=== PATIENT | male | born 1975 | race Caucasian/White ===

== ENCOUNTER 2018-01-05 19:02 | Emergency (ER) | payer BC ==
[2018-01-05] MEDS ORDERED: Bacitracin/Neomycin/Polymyxin B Oint 0.9 GM U/D Packet TOP ONE ×2 (19:07→19:24)
[2018-01-05] MEDS ORDERED: Bacitracin/Neomycin/Polymyxin B Oint 0.9 GM U/D Packet ONE (19:07)
[2018-01-05] MEDS ORDERED: Diphtheria,Pertussis(Acell),Tetanus Vaccine 0.5 ML Syringe IM ONE (19:14)
--- NOTE | 2018-01-05 19:18 | EDM.PDOC ---
ED HPI GENERAL MEDICAL PROBLEM - General Chief Complaint: Laceration Stated Complaint: laceration to right arm Time Seen by Provider: 01/05/18 19:04 Source of Information: Reports: Patient History Limitations: Reports: No Limitations - History of Present Illness Onset: Today, Sudden Location: Reports: Upper Extremity, Right Quality: Reports: Sharp - Related Data Allergies Allergy/AdvReac Type Severity Reaction Status Date / Time No Known Allergies Allergy Verified 01/05/18 19:15 Home Meds: Home Meds Esomeprazole Magnesium [Nexium] 40 mg PO DAILY 07/20/14 [History] Fenofibrate 1 tab PO DAILY 07/20/14 [History] Lisinopril/Hydrochlorothiazide [Lisinopril-Hctz 10-12.5 mg Tab] 1 tab PO DAILY 07/20/14 [History] Potassium Bicarbonate/Cit Ac [Potassium 25 Meq Tablet Eff] 1 tab PO DAILY [History] Sertraline HCl 50 mg PO DAILY 07/20/14 [History] Simvastatin 40 mg PO BEDTIME 07/20/14 [History] Valsartan 160 mg PO DAILY 07/20/14 [History] glipiZIDE [Glipizide ER] 10 mg PO DAILY 07/20/14 [History] metFORMIN [Glucophage] 500 mg PO BID 07/20/14 [History] Past Medical History Cardiovascular History: Reports: High Cholesterol, Hypertension Respiratory History: Reports: Asthma Gastrointestinal History: Reports: GERD Psychiatric History: Reports: Anxiety, Depression Endocrine/Metabolic History: Reports: Diabetes, Type I - Past Surgical History Musculoskeletal Surgical History: Reports: Other (See Below) Social & Family History - Family History Family Medical History: Noncontributory - Caffeine Use Caffeine Use: Reports: Coffee ED ROS GENERAL - Review of Systems Review Of Systems: See Below Skin: Reports: Other (reports laceration to RIGHT arm, dorsal surface. denies other skin concerns) ED EXAM, SKIN/RASH Exam: See Below Exam Limited By: No Limitations General Appearance: Alert, WD/WN, No Apparent Distress Respiratory/Chest: No Respiratory Distress Cardiovascular: Normal Peripheral Pulses Peripheral Pulses: 2+: Radial (L), Radial (R) Extremities: Other (superficial laceration to the dorsal surface of the RIGHT arm. approx 5 cm in length. extremities otherwise without any acute findings.) Skin: Other (laceration to RIGHT arm. see MSK for further. skin is otherwise AWD and without findings.) ED SKIN PROCEDURES - Laceration/Wound Repair Right Middle Dorsal Arm Lac/Wound length In cm: 5 Appearance: Superficial Distal NVT: Neuro & Vascular Intact, No Tendon Injury Anesthetic Type: Local Local Anesthesia - Lidocaine (Xylocaine): Other (none required) Skin Prep: Chlorhexidine (Hibiciens), Providone-Iodine (Betadine) Exploration/Debridement/Repair: Wound Explored Closed with: Dermabond, Steri-Strips Course - Orders/Labs/Meds Orders: Active Orders 24 hr Category Date Time Status Vaccines to be Administered [RC] PER UNIT ROUTINE Care 01/05/18 19:15 Active Meds: Medications Discontinued Medications Generic Name Dose Route Start Last Admin Trade Name Freq PRN Reason Stop Dose Admin Diphtheria/Tetanus/Acell Pertussis 0.5 ml 01/05/18 19:14 01/05/18 19:28 Adacel IM 01/05/18 19:15 0.5 ml .ONCE ONE Administration Neomycin/Polymyxin/Bacitracin Confirm 01/05/18 19:07 01/05/18 19:30 Triple Antibiotic Oint Administered 01/05/18 19:08 Not Given Dose 1 each .ROUTE .STK-MED ONE Neomycin/Polymyxin/Bacitracin 1 each 01/05/18 19:24 01/05/18 19:30 Triple Antibiotic Oint TOP 01/05/18 19:25 1 each ONETIME ONE Administration Neomycin/Polymyxin/Bacitracin 1 each 01/05/18 19:07 01/05/18 19:10 Triple Antibiotic Oint TOP 01/05/18 19:08 1 each ONETIME ONE Administration Departure - Departure Time of Disposition: 19:17 Disposition: DC/Tfer to Hospice - Home 50 Clinical Impression: Laceration - Discharge Information *PRESCRIPTION DRUG MONITORING PROGRAM REVIEWED*: Not Applicable *COPY OF PRESCRIPTION DRUG MONITORING REPORT IN PATIENT NARAYAN: Not Applicable Instructions: Laceration Care, Adult, [id number] Referrals: Roya Phillip PA-C [Primary Care Provider] - Forms: ED Department Discharge - My Orders Last 24 Hours: My Active Orders 01/05/18 19:15 Vaccines to be Administered [RC] PER UNIT ROUTINE - Assessment/Plan Last 24 Hours: My Active Orders 01/05/18 19:15 Vaccines to be Administered [RC] PER UNIT ROUTINE Assessment:: superficial laceration. easily closed with dermabond and steri strips. TdAP updated in ER. patient tolerated procedure well. see note for further information. Advised patient to rest, hydrate, OTC pain control prn symptoms, standard wound care precautions, fu with PCP in 5-7 days, go to ER if change or worse. Patient reports understanding and agreement with plan. DC home stable.
[2018-01-05 20:39] VITALS: BP 148/85
== END 2018-01-05 19:48 | disposition home or self-care (01) ==
LOC: CC.ED 19:02
DX: S41.111A Laceration without foreign body of right upper arm, initial encounter (principal); I10 Essential (primary) hypertension; E10.9 Type 1 diabetes mellitus without complications; Z23 Encounter for immunization; Z79.899 Other long term (current) drug therapy; X58.XXXA Exposure to other specified factors, initial encounter
CPT/HCPCS: 12002; 90471; 90715; 99282

== ENCOUNTER 2018-11-23 21:18 | Emergency (ER) | payer BC ==
[2018-11-23] MEDS ORDERED: Clindamycin HCl 150 MG Cap PO ONE (21:19)
[2018-11-23 21:28] VITALS: BP 145/93; PULSE 81
--- NOTE | 2018-11-23 21:32 | EDM.PDOC ---
ED HPI GENERAL MEDICAL PROBLEM - General Chief Complaint: ENT Problem Stated Complaint: right earache Time Seen by Provider: 11/23/18 21:20 Source of Information: Reports: Patient History Limitations: Reports: No Limitations - History of Present Illness INITIAL COMMENTS - FREE TEXT/NARRATIVE: in with c/o right ear pain, has had sx off and on since jun, has seen the ENT, last time was last week, will need to do additional testing, does have a hx of chronic hearing loss, no new changes, no fever, no neck/back pain or stiffness, no nose or throat sx, no fever, no chills, no drainage from ear Onset: Today Location: Reports: Other (right ear) Quality: Reports: Ache Severity: Moderate Improves with: Reports: None Worsens with: Reports: None Associated Symptoms: Denies: Cough, Fever/Chills, Headaches, Nausea/Vomiting, Rash 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) (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) - Related Data Allergies Allergy/AdvReac Type Severity Reaction Status Date / Time No Known Allergies Allergy Verified 11/23/18 21:19 Home Meds: Home Meds Esomeprazole Magnesium [Nexium] 40 mg PO DAILY 07/20/14 [History] Fenofibrate 1 tab PO DAILY 07/20/14 [History] Lisinopril/Hydrochlorothiazide [Lisinopril-Hctz 10-12.5 mg Tab] 1 tab PO DAILY 07/20/14 [History] Potassium Bicarbonate/Cit Ac [Potassium 25 Meq Tablet Eff] 1 tab PO DAILY [History] Sertraline HCl 50 mg PO DAILY 07/20/14 [History] Simvastatin 40 mg PO BEDTIME 07/20/14 [History] Valsartan 160 mg PO DAILY 07/20/14 [History] glipiZIDE [Glipizide ER] 10 mg PO DAILY 07/20/14 [History] metFORMIN [Glucophage] 500 mg PO DAILY 07/20/14 [History] Clindamycin HCl 150 mg PO TID 10 Days #30 capsule 11/23/18 [Rx] Past Medical History Cardiovascular History: Reports: High Cholesterol, Hypertension Respiratory History: Reports: Asthma Gastrointestinal History: Reports: GERD Psychiatric History: Reports: Anxiety, Depression Endocrine/Metabolic History: Reports: Diabetes, Type I - Past Surgical History Musculoskeletal Surgical History: Reports: Other (See Below) Social & Family History - Family History Family Medical History: Noncontributory - Caffeine Use Caffeine Use: Reports: Coffee ED ROS ENT - Review of Systems Review Of Systems: See Below Constitutional: Reports: No Symptoms. Denies: Fever, Chills HEENT: Reports: Ear Pain (right) Respiratory: Reports: No Symptoms. Denies: Shortness of Breath Cardiovascular: Reports: No Symptoms. Denies: Chest Pain GI/Abdominal: Reports: No Symptoms. Denies: Nausea ED EXAM, ENT - Physical Exam Exam: See Below Exam Limited By: No Limitations General Appearance: Alert, WD/WN, No Apparent Distress Ears: Normal Canal, TM Erythema (right), Other (left tm has scaring and the TM appears irregular, pt advised that is normal for him ) Nose: Normal Inspection, Normal Mucousa Mouth/Throat: Normal Inspection, Normal Gums, Normal Lips, Normal Oropharynx Head: Atraumatic, Normocephalic Neck: Normal Inspection, Supple, Non-Tender, Full Range of Motion Respiratory/Chest: No Respiratory Distress, Lungs Clear, Normal Breath Sounds Cardiovascular: Normal Peripheral Pulses, Regular Rate, Rhythm. No: No Murmur Extremities: Normal Inspection Course - Vital Signs Text/Narrative:: the pt was evaluated in the ED, the pt has acute on chronic OM, the pt willbe given clindamycin 150mg tid x 10 days and will f/u with ENT this week, will use warm heat and alternate tylenol and motrin for pain Departure - Departure Time of Disposition: 21:32 Disposition: Home, Self-Care 01 Condition: Good Clinical Impression: Right otitis media - Discharge Information *PRESCRIPTION DRUG MONITORING PROGRAM REVIEWED*: Not Applicable Prescriptions: Clindamycin HCl 150 mg PO TID 10 Days #30 capsule Instructions: Otitis Media, Adult, [id number] Additional Instructions: clindamycin 150mg 3 x a day for 10 days follow up with your ENT doctor this week, call monday for an appointment time return to the ED as needed - Problem List & Annotations (1) Right otitis media SNOMED Code(s): 07400213 Code(s): H66.91 - OTITIS MEDIA, UNSPECIFIED, RIGHT EAR Status: Acute Priority: High Current Visit: Yes Qualifiers: Otitis media type: unspecified Qualified Code(s): H66.91 - Otitis media, unspecified, right ear
[2018-11-23] MEDS ORDERED: traMADol 50 MG Tab PO ONE (21:37)
[2018-11-23] MEDS ORDERED: Take Home: Clindamycin HCl 150 MG Cap, 6 Cap Pack PO ONE (21:37)
== END 2018-11-23 21:48 | disposition home or self-care (01) ==
LOC: CC.ED 21:18
DX: H66.91 Otitis media, unspecified, right ear (principal); E10.9 Type 1 diabetes mellitus without complications; E78.00 Pure hypercholesterolemia, unspecified; I10 Essential (primary) hypertension; Z79.899 Other long term (current) drug therapy
CPT/HCPCS: 99282; A9270

== ENCOUNTER 2020-08-29 15:38 | Emergency (ER) | payer BC ==
[2020-08-29] MEDS ORDERED: Ketorolac 60 MG/2 ML SDV IM ONE (15:59)
[2020-08-29] MEDS ORDERED: Orphenadrine 60 MG/2 ML Inj IM ONE (15:59)
[2020-08-29] MEDS ORDERED: Take Home: Acetaminophen/HYDROcodone 325-5 MG, 2 Tab Pack PO ONE (16:00)
[2020-08-29] MEDS ORDERED: Take Home: Cyclobenzaprine 10 MG Tab, 4 Tab Pack PO ONE (16:01)
[2020-08-29] MEDS ORDERED: Take Home: Ketorolac 10 MG Tab, 4 Tab Pack PO ONE (16:01)
--- NOTE | 2020-08-29 16:12 | EDM.PDOC ---
ED HPI GENERAL MEDICAL PROBLEM - General Chief Complaint: General Stated Complaint: low back pain Time Seen by Provider: 08/29/20 15:55 Source of Information: Reports: Patient History Limitations: Reports: No Limitations - History of Present Illness INITIAL COMMENTS - FREE TEXT/NARRATIVE: eTd is a 44 year old male who presents today with acute low back pain. Starting having pain last Monday. No known injury or triggers. has been seeing the chiropractor all week with only minimal relief after each treatment. Was feeling better this am but the spasms started again and now is having trouble walking. 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(s) (ibuprofen) - Related Data Allergies Allergy/AdvReac Type Severity Reaction Status Date / Time No Known Allergies Allergy Verified 08/29/20 15:38 Home Meds: Home Meds Sertraline HCl 50 mg PO DAILY 07/20/14 [History] Albuterol Sulfate [Proair Hfa] 2 inh INH QID PRN 07/30/20 [History] Cholecalciferol (Vitamin D3) [Vitamin D3] 125 mcg PO DAILY 07/30/20 [History] Ertugliflozin Pidolate [Steglatro] 5 mg PO DAILY 07/30/20 [History] Esomeprazole Magnesium 40 mg PO DAILY 07/30/20 [History] Fenofibrate Nanocrystallized [Fenofibrate] 145 mg PO DAILY 07/30/20 [History] Irbesartan 300 mg PO DAILY 07/30/20 [History] Montelukast [Singulair] 10 mg PO DAILY 07/30/20 [History] Potassium Chloride 20 meq PO DAILY 07/30/20 [History] amLODIPine Besylate [Amlodipine Besylate] 10 mg PO DAILY 07/30/20 [History] atorvaSTATin Calcium [Atorvastatin Calcium] 40 mg PO DAILY 07/30/20 [History] cloNIDine [Catapres] 0.1 mg PO BID 07/30/20 [History] lisinopriL [Lisinopril] 20 mg PO DAILY 07/30/20 [History] sitaGLIPtin Phos/Metformin HCl [Janumet Xr 100-1,000 mg Tablet] 1 tab PO DAILY 07/30/20 [History] Past Medical History Cardiovascular History: Reports: High Cholesterol, Hypertension Respiratory History: Reports: Asthma Gastrointestinal History: Reports: GERD Psychiatric History: Reports: Anxiety, Depression Endocrine/Metabolic History: Reports: Diabetes, Type II - Past Surgical History Musculoskeletal Surgical History: Reports: Other (See Below) Other Musculoskeletal Surgeries/Procedures:: knee and wrist surgery Social & Family History - Family History Family Medical History: No Pertinent Family History - Tobacco Use Tobacco Use Status *Q: Never Tobacco User - Caffeine Use Caffeine Use: Reports: Coffee - Recreational Drug Use Recreational Drug Use: No ED ROS GENERAL - Review of Systems Review Of Systems: See Below Constitutional: Denies: Fever, Chills, Malaise, Weakness, Fatigue HEENT: Reports: No Symptoms Respiratory: Denies: Shortness of Breath Cardiovascular: Denies: Chest Pain Endocrine: Reports: No Symptoms GI/Abdominal: Denies: Abdominal Pain, Nausea, Vomiting Musculoskeletal: Reports: Back Pain, Leg Pain (pain radiates down the leg), Muscle Pain Skin: Reports: No Symptoms ED EXAM, GENERAL - Physical Exam Exam: See Below Exam Limited By: No Limitations General Appearance: Alert, WD/WN, Moderate Distress Head: Normocephalic Neck: Normal Inspection, Supple, Non-Tender Respiratory/Chest: Lungs Clear Cardiovascular: Regular Rate, Rhythm Back Exam: Decreased Range of Motion, Muscle Spasm (very tight, swollen to right lower lumbar paraspinal musculature. Minimal flexion or extension, difficulty raising up from the chair.), Paraspinal Tenderness Neurological: Alert, Oriented Skin Exam: Warm, Dry Course - Orders/Labs/Meds Meds: Medications Discontinued Medications Generic Name Dose Route Start Last Admin Trade Name Freq PRN Reason Stop Dose Admin Hydrocodone Bitart/Acetaminophen 3 packet 08/29/20 16:00 08/29/20 16:14 Take Home: Acetaminophen/Hydrocodone 325-5 Mg, 2 Tab Pack PO 08/29/20 16:01 3 packet ONETIME ONE Administration Cyclobenzaprine HCl 2 packet 08/29/20 16:01 08/29/20 16:14 Take Home: Cyclobenzaprine 10 Mg Tab, 4 Tab Pack PO 08/29/20 16:02 2 packet ONETIME ONE Administration Ketorolac Tromethamine 60 mg 08/29/20 15:59 08/29/20 16:04 Ketorolac 60 Mg/2 Ml Sdv IM 08/29/20 16:00 60 mg ONETIME ONE Administration Ketorolac Tromethamine 2 packet 08/29/20 16:01 08/29/20 16:14 Take Home: Ketorolac 10 Mg Tab, 4 Tab Pack PO 08/29/20 16:02 2 packet ONETIME ONE Administration Orphenadrine Citrate 60 mg 08/29/20 15:59 08/29/20 16:03 Orphenadrine 60 Mg/2 Ml Inj IM 08/29/20 16:00 60 mg ONETIME ONE Administration Departure - Departure Time of Disposition: 16:13 Disposition: Home, Self-Care 01 Condition: Fair Clinical Impression: Low back pain - Discharge Information *PRESCRIPTION DRUG MONITORING PROGRAM REVIEWED*: No *COPY OF PRESCRIPTION DRUG MONITORING REPORT IN PATIENT NARAYAN: No Instructions: Acute Back Pain, Adult Referrals: Roya Phillip PA-C [Primary Care Provider] - Forms: ED Department Discharge Additional Instructions: 1. Rest 2. Ice or heat 3. Flexeril 10 mg every 8 hours as needed for muscle spasms 4. Toradol 10 every every 6 hours as needed for pain/inflammatin 5. [place] 1 tab every 6 hours for severe pain 6. See Physical therapy for ongoing pain 7. Follow up if persisting pain, may need further imaging Sepsis Event Note (ED) - Evaluation Sepsis Screening Result: No Definite Risk
== END 2020-08-29 16:23 | disposition home or self-care (01) ==
LOC: CC.ED 15:38
DX: M54.5 Low back pain (principal); E78.00 Pure hypercholesterolemia, unspecified; I10 Essential (primary) hypertension; J45.909 Unspecified asthma, uncomplicated; K21.9 Gastro-esophageal reflux disease without esophagitis; E11.9 Type 2 diabetes mellitus without complications; Z79.84 Long term (current) use of oral hypoglycemic drugs; Z79.899 Other long term (current) drug therapy
CPT/HCPCS: 96372; 99283; A9270; J1885; J2360

== ENCOUNTER 2020-09-19 20:19 | Emergency (ER) | payer BC ==
[2020-09-19 20:33] VITALS: BP 170/100; PULSE 84
[2020-09-19] MEDS ORDERED: Take Home: Acetaminophen/HYDROcodone 325-5 MG, 2 Tab Pack PO ONE (20:49)
--- NOTE | 2020-09-19 20:53 | EDM.PDOC ---
ED HPI GENERAL MEDICAL PROBLEM - General Chief Complaint: General Stated Complaint: right ear pain Time Seen by Provider: 09/19/20 20:30 Source of Information: Reports: Patient History Limitations: Reports: No Limitations - History of Present Illness INITIAL COMMENTS - FREE TEXT/NARRATIVE: Ruel is a 44 year old male who presents to ER with complaints of right ear pain. 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 Jacome for this. Tera was seen by Dr. Jacome in [place] and had a polyp present in the drum. Had a powder placed and was started on Ciprodex. Noted that evening, had a pop in the ear, and then drainage. [place] good for a short period of time. Has been draining some since that time. Since 4 pm today, has had more severe pain. No fevers. No swelling or redness around his ear that he is aware. No dizziness. 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 Right Ear Pain Score (Numeric/FACES): 0 - Related Data Allergies Allergy/AdvReac Type Severity Reaction Status Date / Time No Known Allergies Allergy Verified 09/19/20 20:20 Home Meds: Home Meds Sertraline HCl 50 mg PO DAILY 07/20/14 [History] Albuterol Sulfate [Proair Hfa] 2 inh INH QID PRN 07/30/20 [History] Cholecalciferol (Vitamin D3) [Vitamin D3] 125 mcg PO DAILY 07/30/20 [History] Ertugliflozin Pidolate [Steglatro] 5 mg PO DAILY 07/30/20 [History] Esomeprazole Magnesium 40 mg PO DAILY 07/30/20 [History] Fenofibrate Nanocrystallized [Fenofibrate] 145 mg PO DAILY 07/30/20 [History] Irbesartan 300 mg PO DAILY 07/30/20 [History] Montelukast [Singulair] 10 mg PO DAILY 07/30/20 [History] Potassium Chloride 20 meq PO DAILY 07/30/20 [History] amLODIPine Besylate [Amlodipine Besylate] 10 mg PO DAILY 07/30/20 [History] atorvaSTATin Calcium [Atorvastatin Calcium] 40 mg PO DAILY 07/30/20 [History] cloNIDine [Catapres] 0.1 mg PO BID 07/30/20 [History] lisinopriL [Lisinopril] 20 mg PO DAILY 07/30/20 [History] sitaGLIPtin Phos/Metformin HCl [Janumet Xr 100-1,000 mg Tablet] 1 tab PO DAILY 07/30/20 [History] Past Medical History HEENT History: Reports: Hard of Hearing Cardiovascular History: Reports: High Cholesterol, Hypertension Respiratory History: Reports: Asthma Gastrointestinal History: Reports: GERD Psychiatric History: Reports: Anxiety, Depression Endocrine/Metabolic History: Reports: Diabetes, Type II - Past Surgical History Musculoskeletal Surgical History: Reports: Other (See Below) Other Musculoskeletal Surgeries/Procedures:: knee and wrist surgery Social & Family History - Family History Family Medical History: No Pertinent Family History - Tobacco Use Tobacco Use Status *Q: Current Every Day Tobacco User Years of Tobacco use: 30 Packs/Tins Daily: 1 - Caffeine Use Caffeine Use: Reports: Coffee ED ROS GENERAL - Review of Systems Review Of Systems: See Below Constitutional: Denies: Fever, Chills, Malaise, Weakness, Fatigue HEENT: Reports: Ear Discharge, Ear Pain. Denies: Hearing Loss, Rhinitis, Sinus Problem, Throat Pain, Vertigo Respiratory: Denies: Shortness of Breath, Cough Cardiovascular: Denies: Chest Pain, Edema, Lightheadedness Endocrine: Denies: Fatigue GI/Abdominal: Denies: Abdominal Pain, Nausea, Vomiting : Reports: No Symptoms Musculoskeletal: Reports: No Symptoms Skin: Reports: No Symptoms Neurological: Reports: No Symptoms ED EXAM, GENERAL - Physical Exam Exam: See Below Exam Limited By: No Limitations General Appearance: Alert, WD/WN, No Apparent Distress Ears: Other (Left ear canal is clear, TM mclaughlin. Right canal is mildly swollen and red. Appears to have blood clotting present to inner ear. Unable to visualize the tympanic membrane) Nose: Normal Inspection, Normal Mucosa, No Blood Throat/Mouth: Normal Inspection, Normal Oropharynx Head: Normocephalic Neck: Normal Inspection, Supple, Non-Tender Respiratory/Chest: No Respiratory Distress, Lungs Clear, Normal Breath Sounds Cardiovascular: Regular Rate, Rhythm Course - Vital Signs Last Recorded V/S: Last Vital Signs Temp 98 F 05/22/21 20:28 Pulse 84 09/19/20 20:28 Resp 18 09/19/20 20:28 BP 170/100 H 09/19/20 20:28 Pulse Ox 95 09/19/20 20:28 - Orders/Labs/Meds Meds: Medications Discontinued Medications Generic Name Dose Route Start Last Admin Trade Name Kelly PRN Reason Stop Dose Admin Hydrocodone Bitart/Acetaminophen 3 packet 09/19/20 20:49 09/19/20 20:53 Take Home: Acetaminophen/Hydrocodone 325-5 Mg, 2 Tab Pack PO 09/19/20 20:50 Not Given ONETIME ONE - Re-Assessments/Exams Free Text/Narrative Re-Assessment/Exam: 09/19/[address] [facility] in [place], discussed with Dr. Chambers, ENT refrigeration lead. Advised that may take more days to adequately cover infection with Ciprodex but should help the infection. Cover for pain. If pain worsens or is not adequately covered with pain meds, present to [place] ER to be better evaluated by ENT. Information relayed to patient. Departure - Departure Time of Disposition: 20:50 Disposition: Home, Self-Care 01 Condition: Fair Clinical Impression: Otitis externa Polyp of ear canal Qualifiers: Laterality: right Qualified Code(s): H61.891 - Other specified disorders of right external ear - Discharge Information *PRESCRIPTION DRUG MONITORING PROGRAM REVIEWED*: No *COPY OF PRESCRIPTION DRUG MONITORING REPORT IN PATIENT NARAYAN: No Instructions: Otitis Externa Forms: ED Department Discharge Additional Instructions: 1. Ibuprofen or hydrocodone every 3 hours for pain 2. Warm pack to ear 3. Continue Ciprodex drops 4. Follow up in ER in [place] if symptoms get more severe per ENT recommendation Sepsis Event Note (ED) - Evaluation Sepsis Screening Result: No Definite Risk - Focused Exam Vital Signs: Vital Signs Temp Pulse Resp BP Pulse Ox 09/19/20 20:28 98 F 84 18 170/100 H 95
== END 2020-09-19 21:00 | disposition home or self-care (01) ==
LOC: CC.ED 20:19
DX: H61.891 Other specified disorders of right external ear (principal); E78.00 Pure hypercholesterolemia, unspecified; I10 Essential (primary) hypertension; J45.909 Unspecified asthma, uncomplicated; E11.9 Type 2 diabetes mellitus without complications; K21.9 Gastro-esophageal reflux disease without esophagitis; Z72.0 Tobacco use; Z79.899 Other long term (current) drug therapy
CPT/HCPCS: 99282; A9270

== ENCOUNTER 2020-12-06 18:42 | Emergency (ER) | payer BC ==
[2020-12-06 19:02] VITALS: BP 147/94; PULSE 77
--- NOTE | 2020-12-06 19:12 | EDM.PDOC ---
ED HPI GENERAL MEDICAL PROBLEM - General Chief Complaint: General Stated Complaint: back pain Time Seen by Provider: 12/06/20 18:54 Source of Information: Reports: Patient History Limitations: Reports: No Limitations - History of Present Illness INITIAL COMMENTS - FREE TEXT/NARRATIVE: This patient is a 45 year old male that presents to the ER with chronic lower back pain. Patient reports that his lower back pain has been worse since last night and now the pain radiates down the right leg to the toes. Patient denies any new injuries. Patient reports he saw neurosurgery Monday after MRI and 2 weeks of PT. Patient reports his neurosurgeon is having him do 4 more weeks of PT for doing surgery of the lower spine. Patient denies n, v, d, f, urinary/bowel incontinence, or any numbness/tingling around the rectum to indicate any saddle parathesia. Onset Date: 12/05/20 Duration: Chronic, Getting Worse Quality: Reports: Sharp, Throbbing Severity: Moderate Worsens with: Reports: Movement Associated Symptoms: Reports: No Other Symptoms. Denies: Confusion, Chest Pain, Diaphoresis, Fever/Chills, Headaches, Nausea/Vomiting, Seizure, Shortness of Breath, Syncope, Weakness Treatments EGG GATHERER: Reports: Other (see below) Other Treatments EGG GATHERER: flexeril Lower Back Pain Score (Numeric/FACES): 7 - Related Data Allergies Allergy/AdvReac Type Severity Reaction Status Date / Time No Known Allergies Allergy Verified 12/06/20 18:45 Home Meds: Home Meds Sertraline HCl 50 mg PO DAILY 07/20/14 [History] Albuterol Sulfate [Proair Hfa] 2 inh INH QID PRN 07/30/20 [History] Cholecalciferol (Vitamin D3) [Vitamin D3] 125 mcg PO DAILY 07/30/20 [History] Ertugliflozin Pidolate [Steglatro] 5 mg PO DAILY 07/30/20 [History] Esomeprazole Magnesium 40 mg PO DAILY 07/30/20 [History] Fenofibrate Nanocrystallized [Fenofibrate] 145 mg PO DAILY 07/30/20 [History] Irbesartan 300 mg PO DAILY 07/30/20 [History] Montelukast [Singulair] 10 mg PO DAILY 07/30/20 [History] Potassium Chloride 20 meq PO DAILY 07/30/20 [History] amLODIPine Besylate [Amlodipine Besylate] 10 mg PO DAILY 07/30/20 [History] atorvaSTATin Calcium [Atorvastatin Calcium] 40 mg PO DAILY 07/30/20 [History] cloNIDine [Catapres] 0.1 mg PO BID 07/30/20 [History] lisinopriL [Lisinopril] 20 mg PO DAILY 07/30/20 [History] sitaGLIPtin Phos/Metformin HCl [Janumet Xr 100-1,000 mg Tablet] 1 tab PO DAILY 07/30/20 [History] Cyclobenzaprine [Flexeril] 5 mg PO Q6H 12/06/20 [History] predniSONE [Prednisone] 20 mg PO BID #10 tablet 12/06/20 [Rx] Past Medical History HEENT History: Reports: Hard of Hearing Cardiovascular History: Reports: High Cholesterol, Hypertension Respiratory History: Reports: Asthma Gastrointestinal History: Reports: GERD Psychiatric History: Reports: Anxiety, Depression Endocrine/Metabolic History: Reports: Diabetes, Type II - Past Surgical History Musculoskeletal Surgical History: Reports: Other (See Below) Other Musculoskeletal Surgeries/Procedures:: knee and wrist surgery Social & Family History - Family History Family Medical History: No Pertinent Family History - Caffeine Use Caffeine Use: Reports: Coffee ED ROS GENERAL - Review of Systems Review Of Systems: See Below Constitutional: Reports: No Symptoms HEENT: Reports: No Symptoms Respiratory: Reports: No Symptoms Cardiovascular: Reports: No Symptoms Endocrine: Reports: No Symptoms GI/Abdominal: Reports: No Symptoms : Reports: No Symptoms Musculoskeletal: Reports: Back Pain Skin: Reports: No Symptoms Neurological: Reports: Numbness (RLE), Tingling (RLE). Denies: Confusion, Dizziness, Headache, Syncope, Trouble Speaking, Difficulty Walking, Weakness, Change in Speech, Gait Disturbance Psychiatric: Reports: No Symptoms Hematologic/Lymphatic: Reports: No Symptoms Immunologic: Reports: No Symptoms ED EXAM, GENERAL - Physical Exam Exam: See Below Exam Limited By: No Limitations General Appearance: Alert, WD/WN, No Apparent Distress Respiratory/Chest: No Respiratory Distress, Lungs Clear, Normal Breath Sounds, No Accessory Muscle Use Cardiovascular: Normal Peripheral Pulses, Regular Rate, Rhythm, No Edema, No Gallop, No JVD, No Murmur, No Rub Peripheral Pulses: 2+: Radial (L), Radial (R), Posterior Tibial (L), Posterior Tibial (R) Rectal (Males) Exam: Deferred Back Exam: Normal Inspection, Full Range of Motion. No: CVA Tenderness (L), CVA Tenderness (R), Decreased Range of Motion, Muscle Spasm, Paraspinal Tenderness, Vertebral Tenderness Extremities: Normal Inspection, Normal Range of Motion, Non-Tender, No Pedal Edema, Normal Capillary Refill Neurological: Alert, Oriented, Normal Cognition, Normal Gait (ambulatory), Normal Reflexes, No Motor/Sensory Deficits Psychiatric: Normal Affect, Normal Mood Skin Exam: Warm, Dry, Intact, Normal Color, No Rash Course - Vital Signs Last Recorded V/S: Last Vital Signs Temp 98.9 F 12/06/20 18:47 Pulse 77 12/06/20 18:47 Resp 18 12/06/20 18:47 BP 147/94 H 12/06/20 18:47 Pulse Ox 95 12/06/20 18:47 - Orders/Labs/Meds Orders: Active Orders 24 hr Category Date Time Status Cyclobenzaprine [Take Home: Cyclobenzaprine 10 MG, 4 Med 12/06/20 19:42 Once Tab Pack] 2 packet PO ONETIME ONE Meds: Medications Discontinued Medications Generic Name Dose Route Start Last Admin Trade Name Kelly PRN Reason Stop Dose Admin Hydrocodone Bitart/Acetaminophen 3 packet 12/06/20 19:20 Take Home: Acetaminophen/Hydrocodone 325-5 Mg, 2 Tab Pack PO 12/06/20 19:21 ONETIME ONE Ketorolac Tromethamine 30 mg 12/06/20 18:54 12/06/20 19:18 Ketorolac 30 Mg/Ml Sdv IVPUSH 12/06/20 18:55 30 mg NOW STA Administration Methylprednisolone Sodium Succinate 62.5 mg 12/06/20 18:54 12/06/20 19:19 Methylprednisolone Sodium Succinate 125 Mg/2 Ml Sdv IVPUSH 12/06/20 18:55 62.5 mg NOW STA Administration Morphine Sulfate 4 mg 12/06/20 18:55 12/06/20 19:19 Morphine 4 Mg/Ml Vial IVPUSH 12/06/20 18:56 4 mg ONETIME ONE Administration Ondansetron HCl 4 mg 12/06/20 18:55 12/06/20 19:19 Ondansetron 4 Mg/2 Ml Sdv IVPUSH 12/06/20 18:56 4 mg NOW STA Administration - Re-Assessments/Exams Free Text/Narrative Re-Assessment/Exam: 12/06/20 19:25 Patient reports he is feeling good. Will discharge. Departure - Departure Time of Disposition: 19:30 Disposition: Home, Self-Care 01 Condition: Fair Clinical Impression: Low back pain Qualifiers: Chronicity: chronic Back pain laterality: right Sciatica presence: with sciatica Sciatica laterality: sciatica of right side Qualified Code(s): M54.41 - Lumbago with sciatica, right side - Discharge Information *PRESCRIPTION DRUG MONITORING PROGRAM REVIEWED*: Not Applicable *COPY OF PRESCRIPTION DRUG MONITORING REPORT IN PATIENT NARAYAN: Not Applicable Prescriptions: predniSONE [Prednisone] 20 mg PO BID #10 tablet Instructions: Acute Back Pain, Adult, Sciatica, [id number], Chronic Back Pain, [id number] Referrals: Roya Phillip PA-C [Primary Care Provider] - Forms: ED Department Discharge Additional Instructions: Followup with your surgeon by calling the office tomorrow Followup with your primary care provider as needed Continue your medications as prescribed Tylenol and/or IbuProfen for pain as needed/follow directions on bottle Hydrocodone 5/325mg 1 pill every 6 hours as needed for pain #6 take home Flexeril 10mg 1 pill every 8 hours as needed for spasm #8 take home Prednisone 20mg 1 pill twice a day for 5 days #10 no refill: Sent to pharmacy [facility] Sepsis Event Note (ED) - Evaluation Sepsis Screening Result: No Definite Risk - Focused Exam Vital Signs: Vital Signs Temp Pulse Resp BP Pulse Ox 12/06/20 18:47 98.9 F 77 18 147/94 H 95 - My Orders Last 24 Hours: My Active Orders 12/06/20 19:42 Cyclobenzaprine [Take Home: Cyclobenzaprine 10 MG, 4 Tab Pack] 2 packet PO ONETIME ONE - Assessment/Plan Last 24 Hours: My Active Orders 12/06/20 19:42 Cyclobenzaprine [Take Home: Cyclobenzaprine 10 MG, 4 Tab Pack] 2 packet PO ONETIME ONE Plan: PLEASE SEE RN NOTE FOR PFSH
[2020-12-06] MEDS: Ketorolac 30 MG/ML SDV IVPUSH STA (19:18)
[2020-12-06] MEDS: methylPREDNISolone Sodium Succinate 125 MG/2 ML SDV IVPUSH STA (19:19)
[2020-12-06] MEDS: Ondansetron 4 MG/2 ML SDV IVPUSH STA (19:19)
[2020-12-06] MEDS: Morphine 4 MG/ML VIAL IVPUSH ONE (19:19)
[2020-12-06] MEDS ORDERED: Take Home: Cyclobenzaprine 10 MG Tab, 4 Tab Pack ONE (19:25)
[2020-12-06] MEDS ORDERED: Take Home: Acetaminophen/HYDROcodone 325-5 MG, 2 Tab Pack ONE ×2 (19:25)
[2020-12-06] MEDS: Take Home: Acetaminophen/HYDROcodone 325-5 MG, 2 Tab Pack PO ONE (19:50)
[2020-12-06] MEDS: Take Home: Cyclobenzaprine 10 MG Tab, 4 Tab Pack PO ONE (19:51)
== END 2020-12-06 19:52 | disposition home or self-care (01) ==
LOC: CC.ED 18:42
DX: M54.41 Lumbago with sciatica, right side (principal); E78.00 Pure hypercholesterolemia, unspecified; I10 Essential (primary) hypertension; K21.9 Gastro-esophageal reflux disease without esophagitis; E11.9 Type 2 diabetes mellitus without complications; Z79.899 Other long term (current) drug therapy
CPT/HCPCS: 96374; 96375; 99283-25; A9270-GY; J1885; J2270; J2405; J2930

== ENCOUNTER 2020-12-09 02:37 | Emergency (ER) | payer BC ==
[2020-12-09 02:40] VITALS: PULSE 69
[2020-12-09] MEDS: Ketorolac 60 MG/2 ML SDV IM ONE (02:55)
[2020-12-09] MEDS: Orphenadrine 60 MG/2 ML Inj IM ONE (02:56)
--- NOTE | 2020-12-09 02:57 | EDM.PDOC ---
ED HPI GENERAL MEDICAL PROBLEM - General Chief Complaint: General Stated Complaint: Chronic Back Pain Time Seen by Provider: 12/09/20 02:38 Source of Information: Reports: Patient History Limitations: Reports: No Limitations - History of Present Illness INITIAL COMMENTS - FREE TEXT/NARRATIVE: Ruel is a 45 year old male who presents to ER with complaints of severe low back pain. Has been having ongoing issues with this for several weeks. Had a MRI, saw Dr. Stafford last Monday. Was told may require surgery but suggested 4 weeks of PT first. Admits to feeling increased pain since starting PT. Was seen in the ER over the weekend as well, was given flexeril and [place] but states not touching the pain. Cannot get comfortable enough to sleep. MRI did show 3 bulging disks and a tear per patient, cannot review report at this time. Is having pain down his right leg and has had numbness in his right foot today. Is wanting to get a lumbar injection. Called down to [place] [facility] and was told could come to [place] for that. Would like to have in [place] but unable to get an order for that as Dr. Stafford is out of the office until the 24 of December. Onset: Gradual Duration: Week(s):, Getting Worse, Waxing/Waning Location: Reports: Back, Lower Extremity, Right Quality: Reports: Sharp, Throbbing Severity: Severe Improves with: Reports: None Worsens with: Reports: Movement Associated Symptoms: Denies: Confusion, Chest Pain, Fever/Chills, Nausea/Vomiting, Shortness of Breath lower back Pain Score (Numeric/FACES): 8 - Related Data Allergies Allergy/AdvReac Type Severity Reaction Status Date / Time No Known Allergies Allergy Verified 12/09/20 02:40 Home Meds: Home Meds Sertraline HCl 50 mg PO DAILY 07/20/14 [History] Albuterol Sulfate [Proair Hfa] 2 inh INH QID PRN 07/30/20 [History] Cholecalciferol (Vitamin D3) [Vitamin D3] 125 mcg PO DAILY 07/30/20 [History] Ertugliflozin Pidolate [Steglatro] 5 mg PO DAILY 07/30/20 [History] Esomeprazole Magnesium 40 mg PO DAILY 07/30/20 [History] Fenofibrate Nanocrystallized [Fenofibrate] 145 mg PO DAILY 07/30/20 [History] Irbesartan 300 mg PO DAILY 07/30/20 [History] Montelukast [Singulair] 10 mg PO DAILY 07/30/20 [History] Potassium Chloride 20 meq PO DAILY 07/30/20 [History] amLODIPine Besylate [Amlodipine Besylate] 10 mg PO DAILY 07/30/20 [History] atorvaSTATin Calcium [Atorvastatin Calcium] 40 mg PO DAILY 07/30/20 [History] cloNIDine [Catapres] 0.1 mg PO BID 07/30/20 [History] lisinopriL [Lisinopril] 20 mg PO DAILY 07/30/20 [History] sitaGLIPtin Phos/Metformin HCl [Janumet Xr 100-1,000 mg Tablet] 1 tab PO DAILY 07/30/20 [History] Cyclobenzaprine [Flexeril] 5 mg PO Q6H 12/06/20 [History] predniSONE [Prednisone] 20 mg PO BID #10 tablet 12/06/20 [Rx] Past Medical History HEENT History: Reports: Hard of Hearing Cardiovascular History: Reports: High Cholesterol, Hypertension Respiratory History: Reports: Asthma Gastrointestinal History: Reports: GERD Psychiatric History: Reports: Anxiety, Depression Endocrine/Metabolic History: Reports: Diabetes, Type II - Past Surgical History Musculoskeletal Surgical History: Reports: Other (See Below) Other Musculoskeletal Surgeries/Procedures:: knee and wrist surgery Social & Family History - Family History Family Medical History: No Pertinent Family History - Tobacco Use Tobacco Use Status *Q: Unknown Ever Used Tobacco - Caffeine Use Caffeine Use: Reports: Coffee ED ROS GENERAL - Review of Systems Review Of Systems: See Below Constitutional: Reports: Weakness. Denies: Fever, Chills, Malaise HEENT: Denies: Ear Pain, Sinus Problem, Throat Pain, Vision Change Respiratory: Denies: Shortness of Breath, Cough Cardiovascular: Denies: Chest Pain, Edema, Lightheadedness Endocrine: Denies: Fatigue GI/Abdominal: Denies: Abdominal Pain, Nausea, Vomiting : Reports: No Symptoms Musculoskeletal: Reports: Back Pain, Leg Pain Skin: Reports: No Symptoms Neurological: Reports: Weakness ED EXAM, GENERAL - Physical Exam Exam: See Below Exam Limited By: No Limitations General Appearance: Alert, WD/WN, Mild Distress Neck: Normal Inspection, Supple, Non-Tender Respiratory/Chest: No Respiratory Distress, Lungs Clear, Normal Breath Sounds Cardiovascular: Regular Rate, Rhythm GI/Abdominal: Normal Bowel Sounds, Soft, Non-Tender Back Exam: Decreased Range of Motion, Paraspinal Tenderness, Vertebral Tenderness Extremities: Normal Inspection, No Pedal Edema Neurological: Alert, Oriented Skin Exam: Warm, Dry Course - Vital Signs Last Recorded V/S: Last Vital Signs Temp 97.4 F 12/09/20 02:38 Pulse 69 12/09/20 02:38 Resp 14 12/09/20 02:38 BP 177/107 H 12/09/20 02:38 Pulse Ox 98 12/09/20 02:38 - Orders/Labs/Meds Meds: Medications Discontinued Medications Generic Name Dose Route Start Last Admin Trade Name Freq PRN Reason Stop Dose Admin Ketorolac Tromethamine 60 mg 12/09/20 02:41 Ketorolac 60 Mg/2 Ml Sdv IM 12/09/20 02:42 ONETIME ONE Orphenadrine Citrate 60 mg 12/09/20 02:41 Orphenadrine 60 Mg/2 Ml Inj IM 12/09/20 02:42 ONETIME ONE Departure - Departure Time of Disposition: 02:58 Disposition: Home, Self-Care 01 Condition: Fair Clinical Impression: Low back pain Qualifiers: Chronicity: chronic Back pain laterality: right Sciatica presence: with sciatica Sciatica laterality: sciatica of right side Qualified Code(s): M54.41 - Lumbago with sciatica, right side - Discharge Information *PRESCRIPTION DRUG MONITORING PROGRAM REVIEWED*: No *COPY OF PRESCRIPTION DRUG MONITORING REPORT IN PATIENT NARAYAN: No Instructions: Chronic Back Pain Additional Instructions: 1. Rest 2. Ice or heat 3. Continue with Flexeril 4. Percocet 1-2 tabs every 6 hours as needed for pain 5. Contact Roya Phillip in the am in regards to referral to [place] for lumbar injection 6. Will need follow up visit for blood pressure as well, continue usual blood pressure meds at this time Sepsis Event Note (ED) - Evaluation Sepsis Screening Result: No Definite Risk - Focused Exam Vital Signs: Vital Signs Temp Pulse Resp BP Pulse Ox 12/09/20 02:38 97.4 F 69 14 177/107 H 98
[2020-12-09] MEDS: Take Home: Acetaminophen/oxyCODONE 325-5 MG, 2 Tab Pack PO ONE (02:59)
[2020-12-09 03:20] VITALS: BP 167/99
== END 2020-12-09 03:20 | disposition home or self-care (01) ==
LOC: CC.ED 02:37
DX: M54.41 Lumbago with sciatica, right side (principal); E78.00 Pure hypercholesterolemia, unspecified; I10 Essential (primary) hypertension; K21.9 Gastro-esophageal reflux disease without esophagitis; E11.9 Type 2 diabetes mellitus without complications; Z79.899 Other long term (current) drug therapy
CPT/HCPCS: 96372; 99283; A9270; J1885; J2360

== ENCOUNTER 2022-02-28 14:28 | Inpatient (IN) | payer OTHER ==
[2022-02-28] MEDS ORDERED: Heparin Sodium 5,000 Units/ML Vial IVPUSH ONE (15:12)
[2022-02-28] MEDS: Heparin Sodium/0.45% NaCl 500 ML IV SCH (15:25)
[2022-02-28 15:40] LABS: CHLORIDE,CL 103 mEq/L (98-106); SODIUM,NA 140 mEq/L (136-145)
[2022-02-28] MEDS ORDERED: Albuterol 8 GM Inhaler INH PRN (15:45)
[2022-02-28] MEDS ORDERED: Acetaminophen 325 MG Tab PO PRN (15:51)
[2022-02-28] MEDS ORDERED: Sodium Chloride 0.9% 10 ML Syringe FLUSH PRN (15:51)
[2022-02-28] MEDS ORDERED: Ondansetron 4 MG Tab.DIS PO PRN (15:51)
[2022-02-28] MEDS ORDERED: Ondansetron 4 MG/2 ML SDV IV PRN (15:51)
[2022-02-28 15:52] LABS: ESTIMATED GFR 83 mL/min (>=60)
[2022-02-28] MEDS: cloNIDine 0.1 MG Tab PO SCH (19:30)
[2022-02-28] MEDS: Non-Formulary Medication 1 Each (Clobetasol [Clobetasol 0.05%] 30 GM Tube) TOP SCH (20:17)
[2022-03-01] MEDS ORDERED: Hydrochlorothiazide 25 MG Tab PO SCH (08:00)
[2022-03-01] MEDS ORDERED: amLODIPine 10 MG Tab PO SCH ×3 (08:00→20:00)
[2022-03-01] MEDS ORDERED: Non-Formulary Medication 1 Each (Esomeprazole Magnesium [Esomeprazole Magnesium] 40 MG Cap PO SCH (08:00)
[2022-03-01] MEDS ORDERED: Non-Formulary Medication 1 Each (Empagliflozin [Jardiance] 10 MG Tablet) PO SCH (08:00)
[2022-03-01] MEDS ORDERED: Non-Formulary Medication 1 Each (Potassium Chloride [Potassium Chloride] 20 MEQ Tab.Er.Prt PO SCH (08:00)
[2022-03-01] MEDS ORDERED: Lisinopril 20 MG Tab PO SCH (08:00)
[2022-03-01] MEDS ORDERED: Non-Formulary Medication 1 Each (Fluticasone Propionate [Flovent] 50 MCG Blst.W.Dev) NASBOTH SCH (08:00)
[2022-03-01] MEDS ORDERED: [UNRECOGNIZED DRUG - OTHER] PO SCH (08:00)
[2022-03-01] MEDS ORDERED: Non-Formulary Medication 1 Each (Fenofibrate Nanocrystallized [Fenofibrate] 145 MG Tablet) PO SCH (08:00)
[2022-03-01] MEDS ORDERED: SITAGLIPTIN PHOS PO SCH (08:00)
[2022-03-01] MEDS ORDERED: Non-Formulary Medication 1 Each (Atorvastatin Calcium [Atorvastatin Calcium] 40 MG Tablet) PO SCH (08:00)
[2022-03-01] MEDS ORDERED: Montelukast 10 MG Tab PO SCH (08:00)
[2022-03-01] MEDS ORDERED: METFORMIN HCL PO SCH (08:00)
[2022-03-01] MEDS ORDERED: Cholecalciferol (Vitamin D3) 5,000 UNIT Tab PO SCH (08:00)
[2022-03-01] MEDS ORDERED: IRBESARTAN 300 MG PO SCH (09:17)
[2022-03-01] MEDS: Montelukast 10 MG Tab PO SCH (09:35)
[2022-03-01] MEDS: atorvaSTATin 20 MG Tab PO SCH (09:35)
[2022-03-01] MEDS: metFORMIN 500 MG Tab PO SCH ×2 (09:35→17:15)
[2022-03-01] MEDS: Hydrochlorothiazide 25 MG Tab PO SCH (09:36)
[2022-03-01] MEDS: Sertraline 100 MG Tab PO SCH (09:36)
[2022-03-01] MEDS: cloNIDine 0.1 MG Tab PO SCH ×3 (09:36→19:49)
[2022-03-01] MEDS: Pantoprazole 40 MG Tab.CR PO SCH (09:38)
[2022-03-01] MEDS: Potassium Chloride 10 MEQ Tab.ER PO SCH (09:38)
[2022-03-01] MEDS: Lisinopril 20 MG Tab PO SCH ×2 (09:38→19:48)
[2022-03-01] MEDS: IRBESARTAN 300 MG PO SCH (09:39)
[2022-03-01] MEDS: Cholecalciferol (Vitamin D3) 5,000 UNIT Tab PO SCH (09:41)
[2022-03-01] MEDS: Fluticasone NASAL Spray 16 GM Bottle NASBOTH SCH (09:42)
[2022-03-01] MEDS: Non-Formulary Medication 1 Each (Clobetasol [Clobetasol 0.05%] 30 GM Tube) TOP SCH (09:43)
[2022-03-01] MEDS: Heparin Sodium/0.45% NaCl 500 ML IV SCH (10:45)
[2022-03-01] MEDS ORDERED: FENOFIBRATE NANOCRYSTALLIZED 145 MG PO SCH (20:00)
[2022-03-01] MEDS ORDERED: EMPAGLIFLOZIN 10 MG PO SCH (20:00)
[2022-03-02 05:40] VITALS: PULSE 66
[2022-03-02] MEDS: Heparin Sodium/0.45% NaCl 500 ML IV SCH (05:59)
[2022-03-02] MEDS: Fluticasone NASAL Spray 16 GM Bottle NASBOTH SCH (07:56)
[2022-03-02] MEDS: IRBESARTAN 300 MG PO SCH (07:57)
[2022-03-02] MEDS: Potassium Chloride 10 MEQ Tab.ER PO SCH (07:57)
[2022-03-02] MEDS: Sertraline 100 MG Tab PO SCH (07:57)
[2022-03-02] MEDS: cloNIDine 0.1 MG Tab PO SCH (07:58)
[2022-03-02] MEDS: Hydrochlorothiazide 25 MG Tab PO SCH (07:58)
[2022-03-02] MEDS: Lisinopril 20 MG Tab PO SCH (07:59)
[2022-03-02] MEDS: Cholecalciferol (Vitamin D3) 5,000 UNIT Tab PO SCH (07:59)
[2022-03-02] MEDS: atorvaSTATin 20 MG Tab PO SCH (07:59)
[2022-03-02] MEDS: Pantoprazole 40 MG Tab.CR PO SCH (07:59)
[2022-03-02] MEDS: Montelukast 10 MG Tab PO SCH (07:59)
[2022-03-02] MEDS: metFORMIN 500 MG Tab PO SCH (07:59)
[2022-03-02 08:02] VITALS: BP 148/93
== END 2022-03-02 11:11 | disposition home or self-care (01) | DRG 301 ==
LOC: CC.ED 14:28 → UNDOADMIN 15:29 → CC.MS 15:29
PROVIDERS: ADMIT Nurse Practitioner Family; ATTEND Nurse Practitioner Family
DX: I74.2 Embolism and thrombosis of arteries of the upper extremities (principal); H91.90 Unspecified hearing loss, unspecified ear; E78.00 Pure hypercholesterolemia, unspecified; I10 Essential (primary) hypertension; J45.909 Unspecified asthma, uncomplicated; K21.9 Gastro-esophageal reflux disease without esophagitis; F41.9 Anxiety disorder, unspecified; F32.A Depression, unspecified; E11.9 Type 2 diabetes mellitus without complications; Z79.899 Other long term (current) drug therapy; Z79.01 Long term (current) use of anticoagulants
CPT/HCPCS: 36415; 80053; 84484; 85025; 85379; 85610; 85730; 86140; 93005; 93010; 99223; 99232; 99239; A9270-GY; J1644

== ENCOUNTER 2022-06-13 19:50 | Emergency (ER) | payer OTHER ==
[2022-06-13 19:57] VITALS: PULSE 81
[2022-06-13] MEDS: Ketorolac 30 MG/ML SDV IM ONE (20:06)
[2022-06-13] MEDS: Amoxicillin/Clavulanate K 875-125 MG Tab PO STA (20:15)
[2022-06-13] MEDS: predniSONE 20 MG Tab PO STA (20:15)
[2022-06-13 22:01] VITALS: BP 140/90
== END 2022-06-13 20:35 | disposition home or self-care (01) ==
LOC: CC.ED 19:50
DX: J01.90 Acute sinusitis, unspecified (principal); B96.89 Other specified bacterial agents as the cause of diseases classified elsewhere; E11.9 Type 2 diabetes mellitus without complications; I10 Essential (primary) hypertension; F41.9 Anxiety disorder, unspecified; F32.A Depression, unspecified; E78.00 Pure hypercholesterolemia, unspecified; Z79.899 Other long term (current) drug therapy
CPT/HCPCS: 96372; 99283; 99284; A9270-GY; J1885; J7512

== ENCOUNTER 2022-12-21 21:19 | Emergency (ER) | payer BC ==
[2022-12-21] MEDS: Ciprofloxacin 0.3% Ophth Soln 5 ML Bottle EARRT STA (21:33)
[2022-12-21 22:26] VITALS: BP 140/93; PULSE 76
== END 2022-12-21 21:45 | disposition home or self-care (01) ==
LOC: CC.ED 21:19
DX: H60.501 Unspecified acute noninfective otitis externa, right ear (principal); H72.91 Unspecified perforation of tympanic membrane, right ear; I10 Essential (primary) hypertension; E78.00 Pure hypercholesterolemia, unspecified; J45.909 Unspecified asthma, uncomplicated; K21.9 Gastro-esophageal reflux disease without esophagitis; E11.9 Type 2 diabetes mellitus without complications; Z79.899 Other long term (current) drug therapy; Z79.01 Long term (current) use of anticoagulants
CPT/HCPCS: 99282; 99283; A9270-GY

== ENCOUNTER 2024-07-06 09:48 | Emergency (ER) | payer BC ==
[2024-07-06 10:33] VITALS: BP 133/84; PULSE 70
== END 2024-07-06 10:20 | disposition home or self-care (01) ==
LOC: CC.ED 09:48
DX: H60.312 Diffuse otitis externa, left ear (principal); I10 Essential (primary) hypertension; E78.00 Pure hypercholesterolemia, unspecified; J45.909 Unspecified asthma, uncomplicated; E11.9 Type 2 diabetes mellitus without complications; Z79.899 Other long term (current) drug therapy; Z79.51 Long term (current) use of inhaled steroids
CPT/HCPCS: 99282